=== PATIENT | female | born 1985 | race Two or more races ===

== ENCOUNTER 2019-01-29 14:06 | Emergency (ER) | payer OTHER ==
--- NOTE | 2019-01-29 15:12 | ER Document Report ---
HPI - HPI Time Seen by Provider: 01/29/19 14:32 Pain Level: 3 Context: Patient is a 33-year-old female who presents to the emergency department with a chief complaint of nasal congestion, fever, and rhinorrhea. She has had her symptoms for the past week. She also has complaints of left ear pain. Just recently flew back from [place], denies abdominal pain, nausea, or vomiting. - CONSTITUTIONAL Constitutional: REPORTS: Fever - no active, Chills - EENT EENT: REPORTS: Sore Throat - started yesterd, Ear Pain - left ear. DENIES: Eye problems - NEURO Neurology: REPORTS: Headache - global. DENIES: Weakness, Vision blurred, Dizzinesss / Vertigo - RESPIRATORY Respiratory: REPORTS: Coughing - x 1 wk - GASTROINTESTINAL Gastrointestinal: DENIES: Abdominal Pain, Black / Bloody Stools - URINARY Urinary: DENIES: Dysuria, Urgency, Frequency - REPRODUCTIVE LMP: 01/16/19 Reproductive: DENIES: : - DERM Skin Color: Normal Skin Problems: None Past Medical History - General Information source: Patient - Social History Smoking Status: Never Smoker Chew tobacco use (# tins/day): No Frequency of alcohol use: None Drug Abuse: None Family History: Reviewed & Not Pertinent Patient has suicidal ideation: No Patient has homicidal ideation: No Vertical Provider Document - CONSTITUTIONAL Agree With Documented VS: Yes Exam Limitations: No Limitations General Appearance: No Apparent Distress - INFECTION CONTROL TRAVEL OUTSIDE OF THE [place] IN LAST 30 DAYS: Yes - [place] - HEENT HEENT: Atraumatic, Normocephalic, PERRLA, Tympanic Membrane Red - Left, Tympanic Membrane Bulging - Left. negative: Conjuctival Injection, Pharyngeal Exudate, Pharyngeal Tenderness, Pharyngeal Erythema - NECK Neck: Normal Inspection. negative: Lymphadenopathy-Left, Lymphadenopathy-Right - RESPIRATORY Respiratory: Breath Sounds Normal, No Respiratory Distress - CARDIOVASCULAR Cardiovascular: Regular Rate, Regular Rhythm Pulses: Normal: Radial - NEURO Level of Consciousness: Awake, Alert, Appropriate Motor/Sensory: No Motor Deficit, No Sensory Deficit - DERM Integumentary: Warm, Dry, No Rash Course - Re-evaluation Re-evalutation: 01/29/19 15:44 Presentation is most consistent with an acute otitis media. Influenza B is positive. Clinical history as well as exam is most consistent with this diagnosis. Based on history and examination do not suspect an acute meningitis, encephalitis, peritonsillar abscess, or retropharyngeal abscess. Patient is otherwise well in appearance, no acute distress. Vitals otherwise within normal limits. The patient will be started on antibiotics for 10 days. At this time will discharge with return precautions and follow-up recommendations. Verbal discharge instructions given a the bedside to the patient and opportunity for questions given. Medication warnings reviewed. Parents are in agreement with this plan and has verbalized understanding of return precautions and the need for primary care follow-up in the next 24-72 hours. - Vital Signs Vital signs: Temp Pulse Resp BP Pulse Ox 98.4 F 95 20 127/71 H 100 01/29/19 14:09 01/29/19 14:09 01/29/19 14:01/29/19 14:09 01/29/19 14:09 Discharge - Discharge Clinical Impression: Influenza B Otitis media Qualifiers: Otitis media type: suppurative Chronicity: acute Laterality: left Recurrence: not specified as recurrent Spontaneous tympanic membrane rupture: without spontaneous rupture Qualified Code(s): H66.002 - Acute suppurative otitis media without spontaneous rupture of ear drum, left ear Condition: Stable Disposition: HOME, SELF-CARE Additional Instructions: You were seen today for ear pain and have an acute ear infection. Please take the antibiotic that has been prescribed until it is completed even if you are feeling better before you have finished all the antibiotics. For your pain: Take ibuprofen 600 mg and acetaminophen 1000 mg every 6 hours together as needed for pain. Return if you have worsening of your pain, loss of hearing in the affected ear, worsening facial pain, headaches, pass out, or any other symptoms that are worrisome to you. You also have influenza B. Please make sure you get plenty of rest. Continue to take ibuprofen and Tylenol for pain relief and fever. Prescriptions: Amoxicillin Trihydrate [Amoxil 875 mg Tablet] 1 tab PO BID #20 tablet Forms: Return to Work
[2019-01-29 15:32] LABS: A TYPE INFLUENZA AG NEGATIVE (NEGATIVE); B INFLUENZA AG POSITIVE (NEGATIVE)
[2019-01-29] MEDS ORDERED: AMOXICILLIN TRIHYDRATE 500 MG CAPSULE PO ONE (15:47)
[2019-01-29 16:07] VITALS: BP 136/80
== END 2019-01-29 16:05 | disposition home or self-care (01) ==
LOC: ER 14:06
DX: J10.83 Influenza due to other identified influenza virus with otitis media (principal); R09.81 Nasal congestion; J34.89 Other specified disorders of nose and nasal sinuses; H92.02 Otalgia, left ear; J02.9 Acute pharyngitis, unspecified; R51 Headache; R05 Cough
CPT/HCPCS: 87804; 99283

== ENCOUNTER 2019-06-17 16:47 | Emergency (ER) | payer OTHER ==
[2019-06-17 16:58] VITALS: BP 114/68
--- NOTE | 2019-06-17 17:46 | ER Document Report ---
ED Medical Screen (RME) - General Stated Complaint: URINARY ISSUES Time Seen by Provider: 06/17/19 17:45 Mode of Arrival: Ambulatory Information source: Patient Notes: Patient presents complaining of lower abdominal pain that started today. Patient states pain comes and goes. Patient states she has noticed a mild odor to the urine. Patient denies any dysuria. Patient denies any vaginal bleeding or discharge. Patient denies any nausea vomiting or diarrhea. Patient does complain of low back pain as well. I have greeted and performed a rapid initial assessment of this patient. A comprehensive ED assessment and evaluation of the patient, analysis of test results and completion of the medical decision making process will be conducted by additional ED providers. TRAVEL OUTSIDE OF THE [place] IN LAST 30 DAYS: Yes - [place] [place] - Related Data Allergies/Adverse Reactions: No Known Allergies Allergy (Verified 01/29/19 14:24) Physical Exam - Vital signs Vitals: Temp Pulse Resp BP Pulse Ox 98.1 F 69 16 114/68 97 06/17/19 16:55 06/17/19 16:55 06/17/19 16:55 06/17/19 16:55 06/17/19 16:55 - Abdominal Tenderness: Tender - Lower abdomen Course - Vital Signs Vital signs: Temp Pulse Resp BP Pulse Ox 98.1 F 69 16 114/68 97 06/17/19 16:55 06/17/19 16:55 06/17/19 16:55 06/17/19 16:55 06/17/19 16:55
[2019-06-17 18:21] LABS: APPEARANCE,URINE SLIGHTLY-CLOUDY; BILIRUBIN,URINE NEGATIVE (NEGATIVE); COLOR,URINE STRAW; GLUCOSE, URINE NEGATIVE (NEGATIVE)
[2019-06-17 18:22] LABS: ADD MANUAL MICROSCOPIC YES; KETONES,URINE NEGATIVE (NEGATIVE); LEUKOCYTE ESTERASE,URINE NEGATIVE (NEGATIVE); NITRITE,URINE NEGATIVE (NEGATIVE); PROTEIN,URINE NEGATIVE (NEGATIVE); URINE SPECIFIC GRAVITY 1.011; UROBILINOGEN,URINE NEGATIVE mg/dL (<2.0)
[2019-06-17 19:41] LABS: CHLAM PCR NOT DETECTED (NOT DETECT)
--- NOTE | 2019-06-17 20:17 | ER Document Report ---
ED General - General Chief Complaint: Urinary Problem Stated Complaint: URINARY ISSUES Time Seen by Provider: 06/17/19 17:45 Mode of Arrival: Ambulatory Information source: Patient TRAVEL OUTSIDE OF THE [place] IN LAST 30 DAYS: Yes - [facility] Notes: Patient presents with abdominal pain. She states that the pain started this morning. It is been mild to moderate in intensity. Nothing makes it better or worse. There is no no radiation of the pain. She is never had this pain before. She states she does not have dysuria. No trouble with stool. No vaginal discharge or bleeding. She has some mild vaginal irritation. No fevers. - Related Data Allergies/Adverse Reactions: No Known Allergies Allergy (Verified 01/29/19 14:24) Past Medical History - General Information source: Patient - Social History Smoking Status: Never Smoker Chew tobacco use (# tins/day): No Frequency of alcohol use: None Drug Abuse: None Family History: Reviewed & Not Pertinent Patient has homicidal ideation: No Review of Systems - Review of Systems Constitutional: denies: Chills, Fever Cardiovascular: denies: Chest pain, Palpitations Respiratory: denies: Cough, Short of breath -: Yes All other systems reviewed and negative Physical Exam - Vital signs Vitals: Temp Pulse Resp BP Pulse Ox 98.1 F 69 16 114/68 97 06/17/19 16:55 06/17/19 16:55 06/17/19 16:55 06/17/19 16:55 06/17/19 16:55 Interpretation: Normal - General General appearance: Appears well, Alert - HEENT Head: Normocephalic, Atraumatic Eyes: Normal Pupils: PERRL - Respiratory Respiratory status: No respiratory distress Chest status: Nontender Breath sounds: Normal Chest palpation: Normal - Cardiovascular Rhythm: Regular Heart sounds: Normal auscultation Murmur: No - Abdominal Inspection: Normal Distension: No distension Bowel sounds: Normal Tenderness: Tender - Mild suprapubic without rebound or guarding Organomegaly: No organomegaly - Back Back: Normal, Nontender - Extremities General upper extremity: Normal inspection, Nontender, Normal color, Normal ROM, Normal temperature General lower extremity: Normal inspection, Nontender, Normal color, Normal ROM, Normal temperature, Normal weight bearing. No: Warren's sign - Neurological Neuro grossly intact: Yes Cognition: Normal Orientation: AAOx4 Zach Coma Scale Eye Opening: Spontaneous Zach Coma Scale Verbal: Oriented [place] Coma Scale Motor: Obeys Commands Zach Coma Scale Total: 15 Speech: Normal Motor strength normal: LUE, RUE, LLE, RLE Sensory: Normal - Psychological Associated symptoms: Normal affect, Normal mood - Skin Skin Temperature: Warm Skin Moisture: Dry Skin Color: Normal Course - Re-evaluation Re-evalutation: 06/17/19 20:14 Patient presents some mild suprapubic pain. She states she is not concerned about sexually transmitted disease. And she does not have symptoms consistent with a sexually transmitted diseases she has no discharge bleeding or odors. She does have some irritation and is possible she has bacterial vaginosis and she would like to try treatment for that. She does not have a urinary tract infection per laboratories. She is not . Her abdominal exam is not consistent with any type of surgical evaluation. - Vital Signs Vital signs: Temp Pulse Resp BP Pulse Ox 98.1 F 69 16 114/68 97 06/17/19 17:45 06/17/19 16:55 06/17/19 16:55 06/17/19 16:55 06/17/19 16:55 - Laboratory Laboratory results interpreted by me: 06/17/19 17:57 Urine Blood SMALL H Discharge - Discharge Clinical Impression: Pelvic pain Condition: Stable Disposition: HOME, SELF-CARE Instructions: Vaginosis, Bacterial ([facility]) Additional Instructions: Please call your primary care provider as soon as possible to arrange follow-up Prescriptions: Metronidazole [Flagyl 500 mg Tablet] 500 mg PO BID 7 Days #14 tablet Referrals: [facility] [Provider Group] - Follow up in 1 week
== END 2019-06-17 20:37 | disposition home or self-care (01) ==
LOC: ER 16:47
DX: R39.198 Other difficulties with micturition (principal); R10.2 Pelvic and perineal pain
CPT/HCPCS: 81001; 81025; 87491; 87591; 99284

== ENCOUNTER → 2020-02-27 | Outpatient (CLI) | payer OTHER ==
[~2020-02-27] MED LIST: COVID-19 VACCINE (PFIZER)/PF 30 MCG/0.3 ML VIAL IM ONE; EPINEPHRINE INJ/PF 1 MG/1 ML AMPULE IM PRN
== END ==
LOC: EMPHEALTH 15:24
PROVIDERS: ATTEND Internal Medicine
DX: Z23 Encounter for immunization (principal)
CPT/HCPCS: 91300